=== PATIENT | female | born 1930 | race Caucasian/White ===

== ENCOUNTER 2017-06-03 12:59 | Inpatient (IN) ==
[2017-06-03] MEDS ORDERED: Ondansetron 4 MG/2 ML VIAL IVP ONE (13:09)
[2017-06-03] MEDS ORDERED: 0.9 % Sodium Chloride 1,000 ML IVC ONE (13:09)
--- NOTE | 2017-06-03 13:11 | Emergency Department Note ---
Disposition Clinical Impression: UTI (urinary tract infection) Qualifiers: Urinary tract infection type: acute cystitis Hematuria presence: with hematuria Qualified Code(s): N30.01 - Acute cystitis with hematuria Altered mental status Qualifiers: Altered mental status type: unspecified Qualified Code(s): R41.82 - Altered mental status, unspecified Fall Qualifiers: Encounter type: initial encounter Qualified Code(s): W19.XXXA - Unspecified fall, initial encounter Disposition: Admitted As Inpatient Condition: Fair Referrals: Silvia Carrion MD [Primary Care Provider] - Harpal Reece MD [Family Provider] - Forms: ED Satisfaction Letter Time of Disposition: 15:50 General Adult HPI - General Chief complaint: ED Altered Mental Status Stated complaint: found on floor, confusion Time Seen by Provider: 06/03/17 13:05 Source: EMS Mode of arrival: EMS Limitations: no limitations Nursing Notes Reviewed: Yes Vital Signs Reviewed: Yes - History of Present Illness HPI Narrative: 86-year-old female who lives at home by herself. Yesterday at about noon there was a furnace repairman who was at her house and she reportedly was normal that time. At about 1:00 family went to check on her but she did not answer the door and the phone was busy. They have not heard from her symptoms. They were able to get in the door this afternoon and found her on the floor laying on her back disoriented and trembling with soiled clothes. According to her son she does not have a history of stroke. She has been fairly healthy and the only medication she takes is aspirin, lisinopril, And oxycodone. He denies that she is on any blood thinners. The patient was significantly confused and unable to answer questions appropriately and so was brought to the emergency department. Her son reports that she does have a history of diabetes but is not currently taking any medications for that as they were d/c by her PCP. Pain Scale: 0 Consistency: constant Improves with: nothing Worsens with: nothing Associated symptoms: Reports: denies other symptoms Treatments Prior to Arrival: none - Related Data Home Medications Medication Instructions Recorded Confirmed Aspirin Enteric Coated [Aspirin EC] 81 mg PO DAILY 06/03/17 06/03/17 Lovastatin [Lovastatin] 40 mg PO DAILY 06/03/17 06/03/17 Tizanidine HCl [Tizanidine HCl] 2 mg PO BID 06/03/17 06/03/17 Allergies Allergy/AdvReac Type Severity Reaction Status Date / Time No Known Allergies Allergy Verified 06/03/17 13:06 Limitations: ROS unobtainable due to patients medical condition Past Medical History - Past Medical History Medical history: Reports: diabetes, hypertension - Social History Smoking Status: Current every day smoker Physical Exam - General Limitations: altered mental status General appearance: alert - Head Head exam: atraumatic - Eye Eye exam: Present: normal appearance, PERRL, EOMI - ENT ENT exam: normal exam - Neck Neck exam: Present: normal inspection - Cardiovascular Cardiovascular exam: Present: regular rate, normal rhythm - Abdominal Exam Abdominal exam: Present: soft, Non-Tender - Extremities Exam Extremities exam: Present: normal inspection - Neurological Exam Neurological exam: Present: alert, other (Does not answer questions appropriately. Does not follow commands but is moving all extremities. She is alert and repeating "I am fine" over and over) - Skin Skin exam: Present: warm, dry Course Course Narrative: GCS 12. Points taken off for localizing to pain, and inappropriate words. CT scans show no acute abnormality. Cervical collar removed. Labwork stable. UTI is present. Will treat with rocephin. Will fluid hydrate and admit for AMS /UTI Vital Signs Temperature 99.7 F H 06/03/17 13:00 Pulse Rate 72 06/03/17 13:00 Respiratory Rate 18 06/03/17 13:00 Blood Pressure 146/117 06/03/17 13:00 O2 Sat by Pulse Oximetry 95 06/03/17 13:00 Temperature 99.7 F H 06/03/17 13:00 Pulse Rate 72 06/03/17 13:00 Respiratory Rate 18 06/03/17 13:00 Blood Pressure 146/117 06/03/17 13:00 O2 Sat by Pulse Oximetry 97 06/03/17 13:23 Oxygen Delivery Oxygen Delivery Nasal Cannula Medical Decision Making - Medical Records Medical records reviewed: Yes I reviewed the patient's medical records. - Lab Data Lab results reviewed: Yes I reviewed the patient's lab results. Result diagrams: 06/03/17 13:43 06/03/17 13:37 Lab Results 06/03/17 06/03/17 06/03/17 Range/Units 13:23 13:24 13:37 WBC (4.3-11.1) K/mcL RBC (3.82-4.97) M/mcL Hgb (11.5-15.4) g/dL Hct (35.3-44.9) % MCV (83.0-100.0) fL MCH (28.0-33.3) pg MCHC (31.6-35.5) g/dL RDW (11.5-14.5) % Plt Count (140-400) K/mcL MPV (9.4-12.4) fL Immature Gran % (0-4) % Seg Neutrophils % % Lymphocytes % % Monocytes % % Eosinophils % % Basophils % % Neutrophils # (1.6-8.9) K/mcL Lymphocytes # (0.6-4.6) K/mcL Monocytes # (0.0-1.3) K/mcL Eosinophils # (0.0-0.6) K/mcL Basophils # (0.0-0.2) K/mcL Immature Plt Fraction (1.1-6.1) % PT 11.3 (9.4-12.1) Seconds INR 1.1 APTT 30.6 (26.0-36.0) Seconds Sodium (136-145) mEq/L Potassium (3.5-5.1) mEq/L Chloride (98-107) mEq/L Carbon Dioxide (23-29) mEq/L BUN (8-23) mg/dL Creatinine (0.60-1.20) mg/dL Est GFR ( Amer) (> 60) Est GFR (Non-Af Amer) (> 60) BUN/Creatinine Ratio (6-26) Glucose (70-105) mg/dL Calculated Osmolality (280-300) Lactic Acid (0.5-2.2) mmol/L Calcium (8.6-10.3) mg/dL Total Bilirubin (0.3-1.0) mg/dL Direct Bilirubin (0.0-0.2) mg/dL Indirect Bilirubin (0.0-1.2) mg/dL AST (13-39) Units/L ALT (7-52) Units/L Alkaline Phosphatase (34-104) Units/L Creatine Kinase (30-223) Units/L Troponin I (< 0.04) ng/mL Serum Total Protein (6.4-8.9) g/dL Albumin (3.5-5.7) g/dL Globulin (2.4-3.5) g/dL Albumin/Globulin Ratio (1.1-2.2) TSH (0.340-5.600) mcIU/mL Urine Color Yellow (Yellow) Urine Clarity Cloudy A (Clear) Urine pH 5.5 (5.0-8.0) pH Units Ur Specific [place] 1.024 (1.010-1.025) Urine Protein 30 H (Neg-Trace) mg/dL Urine Glucose (UA) Normal (Normal) mg/dL Urine Ketones Trace H (Negative) mg/dL Urine Blood Moderate H (Negative) Urine Nitrite Negative (Negative) Urine Bilirubin Negative (Negative) Urine Urobilinogen Normal (Normal) mg/dL Ur Leukocyte Esterase Small H (Negative) Urine Microscopic RBC 0-3 (0-3) per hpf Urine Microscopic WBC 30-50 H (0-3) per hpf Ur Squamous Epith Cells None Seen (None-Few) per lpf Urine Bacteria Many H (None-Few) per hpf Hyaline Casts None Seen (None-Few) per lpf Ur Culture Indicated? YES A (NO) Urine Opiates Screen Negative (Xlicbx=248) ng/mL Ur Barbiturates Screen Negative (Xesfaz=295) ng/mL Ur Phencyclidine Scrn Negative (Cutoff=25) ng/mL Ur Amphetamines Screen Negative (Pfnmcr=6142) ng/mL U Benzodiazepines Scrn Negative (Ctxtbm=404) ng/mL Urine Cocaine Screen Negative (Cutoff= 300) ng/mL U Marijuana (THC) Screen Negative (Cutoff = 50) ng/mL Ethyl Alcohol (0-10) mg/dL 06/03/17 06/03/17 06/03/17 Range/Units 13:37 13:37 13:37 WBC (4.3-11.1) K/mcL RBC (3.82-4.97) M/mcL Hgb (11.5-15.4) g/dL Hct (35.3-44.9) % MCV (83.0-100.0) fL MCH (28.0-33.3) pg MCHC (31.6-35.5) g/dL RDW (11.5-14.5) % Plt Count (140-400) K/mcL MPV (9.4-12.4) fL Immature Gran % (0-4) % Seg Neutrophils % % Lymphocytes % % Monocytes % % Eosinophils % % Basophils % % Neutrophils # (1.6-8.9) K/mcL Lymphocytes # (0.6-4.6) K/mcL Monocytes # (0.0-1.3) K/mcL Eosinophils # (0.0-0.6) K/mcL Basophils # (0.0-0.2) K/mcL Immature Plt Fraction (1.1-6.1) % PT (9.4-12.1) Seconds INR APTT (26.0-36.0) Seconds Sodium 137 (136-145) mEq/L Potassium 4.1 (3.5-5.1) mEq/L Chloride 101 (98-107) mEq/L Carbon Dioxide 25 (23-29) mEq/L BUN 27 H (8-23) mg/dL Creatinine 1.14 (0.60-1.20) mg/dL Est GFR ( Amer) 55 L (> 60) Est GFR (Non-Af Amer) 45 L (> 60) BUN/Creatinine Ratio 24 (6-26) Glucose 151 H (70-105) mg/dL Calculated Osmolality 292 (280-300) Lactic Acid (0.5-2.2) mmol/L Calcium 10.5 H (8.6-10.3) mg/dL Total Bilirubin 0.6 (0.3-1.0) mg/dL Direct Bilirubin 0.1 (0.0-0.2) mg/dL Indirect Bilirubin 0.5 (0.0-1.2) mg/dL AST 20 (13-39) Units/L ALT 7 (7-52) Units/L Alkaline Phosphatase 138 H (34-104) Units/L Creatine Kinase 300 H (30-223) Units/L Troponin I 0.03 (< 0.04) ng/mL Serum Total Protein 7.8 (6.4-8.9) g/dL Albumin 4.6 (3.5-5.7) g/dL Globulin 3.2 (2.4-3.5) g/dL Albumin/Globulin Ratio 1.4 (1.1-2.2) TSH 0.756 (0.340-5.600) mcIU/mL Urine Color (Yellow) Urine Clarity (Clear) Urine pH (5.0-8.0) pH Units Ur Specific [place] (1.010-1.025) Urine Protein (Neg-Trace) mg/dL Urine Glucose (UA) (Normal) mg/dL Urine Ketones (Negative) mg/dL Urine Blood (Negative) Urine Nitrite (Negative) Urine Bilirubin (Negative) Urine Urobilinogen (Normal) mg/dL Ur Leukocyte Esterase (Negative) Urine Microscopic RBC (0-3) per hpf Urine Microscopic WBC (0-3) per hpf Ur Squamous Epith Cells (None-Few) per lpf Urine Bacteria (None-Few) per hpf Hyaline Casts (None-Few) per lpf Ur Culture Indicated? (NO) Urine Opiates Screen (Sedmkq=879) ng/mL Ur Barbiturates Screen (Eroccr=889) ng/mL Ur Phencyclidine Scrn (Cutoff=25) ng/mL Ur Amphetamines Screen (Vokfqy=8485) ng/mL U Benzodiazepines Scrn (Tjiwkg=154) ng/mL Urine Cocaine Screen (Cutoff= 300) ng/mL U Marijuana (THC) Screen (Cutoff = 50) ng/mL Ethyl Alcohol < 10 (0-10) mg/dL 06/03/17 06/03/17 Range/Units 13:43 13:43 WBC 12.3 H (4.3-11.1) K/mcL RBC 4.89 (3.82-4.97) M/mcL Hgb 14.6 (11.5-15.4) g/dL Hct 44.3 (35.3-44.9) % MCV 90.6 (83.0-100.0) fL MCH 29.9 (28.0-33.3) pg MCHC 33.0 (31.6-35.5) g/dL RDW 13.6 (11.5-14.5) % Plt Count 283 (140-400) K/mcL MPV 10.6 (9.4-12.4) fL Immature Gran % 0.3 (0-4) % Seg Neutrophils % 83.8 % Lymphocytes % 9.5 % Monocytes % 6.2 % Eosinophils % 0.0 % Basophils % 0.2 % Neutrophils # 10.3 H (1.6-8.9) K/mcL Lymphocytes # 1.2 (0.6-4.6) K/mcL Monocytes # 0.8 (0.0-1.3) K/mcL Eosinophils # 0.0 (0.0-0.6) K/mcL Basophils # 0.0 (0.0-0.2) K/mcL Immature Plt Fraction 5.1 (1.1-6.1) % PT (9.4-12.1) Seconds INR APTT (26.0-36.0) Seconds Sodium (136-145) mEq/L Potassium (3.5-5.1) mEq/L Chloride (98-107) mEq/L Carbon Dioxide (23-29) mEq/L BUN (8-23) mg/dL Creatinine (0.60-1.20) mg/dL Est GFR ( Amer) (> 60) Est GFR (Non-Af Amer) (> 60) BUN/Creatinine Ratio (6-26) Glucose (70-105) mg/dL Calculated Osmolality (280-300) Lactic Acid 1.5 (0.5-2.2) mmol/L Calcium (8.6-10.3) mg/dL Total Bilirubin (0.3-1.0) mg/dL Direct Bilirubin (0.0-0.2) mg/dL Indirect Bilirubin (0.0-1.2) mg/dL AST (13-39) Units/L ALT (7-52) Units/L Alkaline Phosphatase (34-104) Units/L Creatine Kinase (30-223) Units/L Troponin I (< 0.04) ng/mL Serum Total Protein (6.4-8.9) g/dL Albumin (3.5-5.7) g/dL Globulin (2.4-3.5) g/dL Albumin/Globulin Ratio (1.1-2.2) TSH (0.340-5.600) mcIU/mL Urine Color (Yellow) Urine Clarity (Clear) Urine pH (5.0-8.0) pH Units Ur Specific [place] (1.010-1.025) Urine Protein (Neg-Trace) mg/dL Urine Glucose (UA) (Normal) mg/dL Urine Ketones (Negative) mg/dL Urine Blood (Negative) Urine Nitrite (Negative) Urine Bilirubin (Negative) Urine Urobilinogen (Normal) mg/dL Ur Leukocyte Esterase (Negative) Urine Microscopic RBC (0-3) per hpf Urine Microscopic WBC (0-3) per hpf Ur Squamous Epith Cells (None-Few) per lpf Urine Bacteria (None-Few) per hpf Hyaline Casts (None-Few) per lpf Ur Culture Indicated? (NO) Urine Opiates Screen (Wnyjzf=677) ng/mL Ur Barbiturates Screen (Peozqn=522) ng/mL Ur Phencyclidine Scrn (Cutoff=25) ng/mL Ur Amphetamines Screen (Btmdgv=4939) ng/mL U Benzodiazepines Scrn (Vgriaq=894) ng/mL Urine Cocaine Screen (Cutoff= 300) ng/mL U Marijuana (THC) Screen (Cutoff = 50) ng/mL Ethyl Alcohol (0-10) mg/dL - Radiology Data Radiology results reviewed: Yes I reviewed the patient's radiology results. - EKG Data EKG #1 EKG attestation: Yes I reviewed and interpreted this EKG. EKG shows normal: sinus rhythm [place]/QRS: RBBB When compared to previous EKG there are: previous EKG unavailable Interpretation: other (U wave is present in V2, V4, V5.) Attestation Statement - Attestation Attestation: I, Marlon White DO, examined this patient [id number] and my medical decision-making was reviewed with Dr. Edil Zheng, Resident Physician. I agree with the documented findings, disposition and treatment plan as described except to the extent set forth below. Please see my progress notes for details. 86-year-old female presents to the emergency room by EMS for evaluation of altered mentation and found down at home. Last known time frame of normal was yesterday partially 1 PM. No visible signs of trauma or injury noted on exam. Vital signs otherwise unremarkable. Patient is speaking in sentences. Does know her name. She is not oriented to time or place. Lungs are clear heart is regular abdomen is soft nontender nondistended. No visible guarding or rigidity. Patient does not have any acute signs of skin deterioration or breakdown. C-collar was applied in transit. CT imaging of the head cervical spine chest and abdomen will be completed at this time. Patient will have screening laboratory workup a CBC chemistry troponin EKG along with CPK and urinalysis. Expect patient will need admission to the hospital for definitive management considering altered mentation and unknown amount of downtime. Family is with her at the bedside and confirms last normal was yesterday. No history of stroke or other underlying medical conditions at this point. Accu- Chek was collected on presentation and it was normal. See detailed documentation of physical exam, medical intervention, medical decision-making and disposition in the resident physician's note. No critical care applied to this patient at this time. 1500 Imaging and labs are otherwise unremarkable. Patient has mild urinary tract infection will be started on IV antibiotics here. Admission process to be completed at this time for evaluation the altered mentation.
[2017-06-03 13:39] LABS: Bilirubin,Urine Negative (Negative); Blood,Urine Moderate (Negative); Clarity,Urine Cloudy (Clear); Color,Urine Yellow (Yellow); Glucose,Urine (UA) Normal (Normal); Ketones,Urine Trace mg/dL (Negative); Leukocyte Esterase,Urine Small (Negative); Nitrite,Urine Negative (Negative); PH,Urine 5.5 pH Units (5.0-8.0); Protein,Urine 30 mg/dL (Neg-Trace); Specific Gravity,Urine 1.024 (1.010-1.025); Urobilinogen,Urine Normal (Normal)
[2017-06-03 13:42] LABS: Bacteria,Urine Many per hpf (None-Few); Hyaline Casts,Urine None Seen per lpf (None-Few); RBC,Urine 0-3 per hpf (0-3); Squamous Epithelial Cell,Urine None Seen per lpf (None-Few); WBC,Urine 30-50 per hpf (0-3)
[2017-06-03 13:55] LABS: Basophils % 0.2 %; Hematocrit 44.3 % (35.3-44.9); Hemoglobin 14.6 g/dL (11.5-15.4); Immature Granulocytes % 0.3 % (0-4); Immature Platelets 5.1 % (1.1-6.1); Lymphocytes # 1.2 K/mcL (0.6-4.6); Lymphocytes % 9.5 %; Mean Corpuscular Hemoglobin 29.9 pg (28.0-33.3); Mean Corpuscular Volume 90.6 fL (83.0-100.0); Mean Platelet Volume 10.6 fL (9.4-12.4); Monocytes # 0.8 K/mcL (0.0-1.3); Monocytes % 6.2 %; Neutrophils # 10.3 K/mcL (1.6-8.9); Platelet Count 283 K/mcL (140-400); Red Blood Count 4.89 M/mcL (3.82-4.97); Red Cell Distribution Width 13.6 % (11.5-14.5); Segmented Neutrophils % 83.8 %
[2017-06-03 14:09] LABS: Alanine Aminotransferase 7 Units/L (7-52); Albumin 4.6 g/dL (3.5-5.7); Albumin/Globulin Ratio 1.4 (1.1-2.2); Alkaline Phosphatase 138 Units/L (34-104); Aspartate Amino Transferase 20 Units/L (13-39); BUN/Creatinine Ratio 24 (6-26); Bilirubin,Direct 0.1 mg/dL (0.0-0.2); Bilirubin,Indirect 0.5 mg/dL (0.0-1.2); Bilirubin,Total 0.6 mg/dL (0.3-1.0); Blood Urea Nitrogen 27 mg/dL (8-23); Calcium 10.5 mg/dL (8.6-10.3); Carbon Dioxide 25 mEq/L (23-29); Chloride 101 mEq/L (98-107); Globulin 3.2 g/dL (2.4-3.5); Glucose 151 mg/dL (70-105); Osmolality,Calculated 292 (280-300); Potassium 4.1 mEq/L (3.5-5.1); Sodium 137 mEq/L (136-145); Total Protein 7.8 g/dL (6.4-8.9); eGFR For African Americans 55 (> 60); eGFR For Non-African Americans 45 (> 60)
[2017-06-03 14:10] LABS: Ethanol < 10 mg/dL (0-10)
[2017-06-03 14:21] LABS: INR 1.1; Prothrombin Time 11.3 Seconds (9.4-12.1)
[2017-06-03 14:23] LABS: Activated Partial Thrombo Time 30.6 Seconds (26.0-36.0)
[2017-06-03 14:25] LABS: Thyroid Stimulating Hormone 0.756 mcIU/mL (0.340-5.600)
[2017-06-03] MEDS ORDERED: cefTRIAXone 1,000 MG in Water for inj. (sterile) 10 ML IVP ONE (14:43)
[2017-06-03 14:47] LABS: Amphetamine Screen,Urine Negative ng/mL (Cutoff=1000); Barbiturate Screen,Urine Negative ng/mL (Cutoff=200); Benzodiazepines Screen,Urine Negative ng/mL (Cutoff=200); Cannabinoid Screen,Urine Negative ng/mL (Cutoff = 50); Cocaine Screen,Urine Negative ng/mL (Cutoff= 300); Opiate Screen,Urine Negative ng/mL (Cutoff=300); Phencyclidine Screen,Urine Negative ng/mL (Cutoff=25)
[2017-06-03] MEDS ORDERED: Naloxone 0.4 MG/ML INJ IVP PRN (16:09)
[2017-06-03] MEDS ORDERED: 0.9 % Sodium Chloride 1,000 ML IVC SCH (16:15)
--- NOTE | 2017-06-03 18:15 | Internal Med History&Physical ---
Date of Encounter: 06/03/17 Time of Encounter: 15:00 Assessment and Plan (1) CVA (cerebral vascular accident) Current visit: Yes Status: Acute patient was found down in her today, last known well was approx [address] of head negative. MRI show tiny area of acute lacunar infarct within the left occipital lobe white matter. consulted neurology and spoke with DR Lange we will continue ASA hold statin for now patient is NPO - resume once cleared by speech check lipid profile consult PT/OT keep pt NPO- consult speech for swallow evaluation aspiration precautions social work associate for discharge planning- patient may require ECF placement monitor BS- accucheck every 6 hrs while NPO SSI monitor BP allow for permissive hypertension Qualifiers: CVA mechanism: occlusion Precerebral and cerebral artery: unspecified cerebral artery Qualified Code(s): I63.50 - Cerebral infarction due to unspecified occlusion or stenosis of unspecified cerebral artery (2) Diabetes mellitus Current visit: Yes Status: Acute accucheck every 6 hrs while NPO- SSI Qualifiers: Diabetes mellitus type: type 2 Diabetes mellitus complication status: without complication Diabetes mellitus custodial insulin use: without long term care social worker use Qualified Code(s): E11.9 - Type 2 diabetes mellitus without complications (3) HTN (hypertension) Current visit: Yes Status: Acute 1 Qualifiers: Hypertension type: essential hypertension Qualified Code(s): I10 - Essential (primary) hypertension (4) UTI (urinary tract infection) Current visit: Yes Status: Acute 1 we will continue with Rocephin pending culture sensitivity. Blood culture and urine culture sent Qualifiers: Urinary tract infection type: acute cystitis Hematuria presence: with hematuria Qualified Code(s): N30.01 - Acute cystitis with hematuria (5) DVT prophylaxis Current visit: Yes Status: Acute SCD Internal Medicine - H&P: HPI Chief complaint: AMS Admitted From: Emergency Dept Plans for Post Hospital Care: Home History of present illness: Ms. Armas is a 86 year old female past medical hx of HTN DM . Patient is independent and lives on own. She was found by the family at approx 1pm on the floor on her back. She was disoriented, and clothes were soiled. She was last seen well yesterday at approx 12 noon. She does not have any hx of stroke or seizure. She has been in good health with only a few medications. No hx of blood thinners. Lab work did show slight elevation in WBC urine did show UTI.CT of head and cervical spine with no acute abnormalities or fx .Blood culture were obtained and ATB initiated. She has been admitted for further workup and evaluation. Upon examination it is noted that patient is groggy and arouses to tactile stimuli, noted gaze preference to the left. She is unable to answer questions and repeats questions over and over. She does not follow any commands. Concerned for possible CVA, will obtain STAT MRI Notified Dr Vallejo of changes Past Med Surg Social Fam HX - Past Medical History Medical history: diabetes, hypertension - Social History Smoking Status: Current every day smoker - Additional Family History Additional family history: unknown Internal Medicine - H&P: Meds Aspirin Enteric Coated [Aspirin EC] 81 mg PO DAILY 06/03/17 [History] Lovastatin [Lovastatin] 40 mg PO DAILY 06/03/17 [History] Tizanidine HCl [Tizanidine HCl] 2 mg PO BID 06/03/17 [History] 3 Allergy/AdvReac Type Severity Reaction Status Date / Time No Known Allergies Allergy Verified 06/03/17 13:06 ROS unobtainable: due to mental status All Systems PM: A 10-system review of systems was performed and is negative for pertinent findings except as documented above in the HPI. - Constitutional Vitals: Temp Pulse Resp BP Pulse Ox 99.6 F 56 17 121/72 98 06/03/17 16:31 06/03/17 16:31 06/03/17 16:31 06/03/17 16:31 06/03/17 16:31 General appearance: Present: A&O X 0 - Head Head exam: Present: atraumatic, normocephalic - Eye Eye exam: Present: PERRL Additional comments: noted gaze preference to left - Neck Neck exam general surgery: Present: supple, trachea midline. Absent: lymphadenopathy - Respiratory Respiratory exam: Present: CTAB. Absent: accessory muscle use, rales, rhonchi, wheezes - Cardiovascular Cardiovascular exam: Present: RRR, +S1, +S2. Absent: diastolic murmur, gallop, rubs, systolic murmur - GI/Abdominal GI/Abdominal exam: Present: normal bowel sounds, soft, no peritoneal signs. Absent: distended, tenderness - Extremities Exam Extremities exam: Present: warm, radial pulses palpable and symmetrical. Absent : calf tenderness, cyanotic, pedal edema - Neurological Exam Neurological exam: Present: altered. Absent: pronater drift, facial droop, speech deficit Additional comments: unable to follow any commands - Skin Skin exam: Present: dry, intact Internal Med - H&P Results - Labs CBC & Chem 7: 06/03/17 13:43 06/03/17 13:37 - EKG Data EKG shows normal: sinus rhythm - EKG Data Prior EKG available for review: yes When compared to previous EKG: there is no significant change - Diagnostic Studies Other Images Additional comments: Chest X-Ray 06/03/17 13:06 IMPRESSION: 1. No acute cardiopulmonary process. D/ / Fawad Valdez MD / Fawad Valdez MD Interpreting Provider: Fawad Valdez MD Abdomen/Pelvis CT 06/03/17 13:07 IMPRESSION: 1. Study limited in evaluation for acute subtle, solid or hollow organ injury given lack of IV and oral contrast. However, given these limitations, there is no acute traumatic abnormality within the abdomen or pelvis. 2. A 2 mm nonobstructing calculus within the left kidney upper pole, without evidence of a ureteral calculus or hydronephrosis. 3. Colonic diverticulosis, though no evidence of diverticulitis. 4. Small sliding-type hiatal hernia. 5. Mild cardiomegaly. 6. Multilevel disc osteophyte protrusions within the thoracic and lumbar spine, causing multilevel central canal stenosis. This could be further characterized with a follow-up thoracolumbar MRI, if clinically indicated. D/ / 06/03/2017 14:35:01 Nicko Camp MD / earnold Interpreting Provider: Nicko Camp MD Cervical Spine CT 06/03/17 13:07 IMPRESSION: No acute abnormality of the cervical spine. Multilevel degenerative changes. D/ / Saul Mark MD / Saul Mark MD Interpreting Provider: Saul Mark MD Chest CT 06/03/17 13:07 IMPRESSION: 1. Scarring versus atelectasis in the medial lower lobes. No suspicious infiltrate or edema 2. Calcific Coronary atherosclerosis D/ / Gael Nava MD / Gael Nava MD Interpreting Provider: Gael Nava MD Head CT 06/03/17 13:07 IMPRESSION: 1. No acute intracranial abnormality. 2. Global atrophy with chronic periventricular white matter ischemic changes. D/ / 06/03/2017 14:29:36 Jered Pascual MD / earnold Interpreting Provider: Jered Pascual MD Brain MRI 06/03/17 16:07 IMPRESSION: Tiny area of acute lacunar infarct within left occipital lobe white matter. No associated susceptibility to suggest acute intracranial hemorrhage. Chronic small vessel ischemic white matter disease and cerebral volume loss. Multiple small subcentimeter T2 hyperintense lesions within bilateral parotid, which may represent intraparotid lymph nodes. This is not fully imaged on this examination. D/ / 06/03/2017 18:22:24 Romero Hinds MD / arnaldo Interpreting Provider: Romero Hinds MD
[2017-06-03] MEDS ORDERED: Dextrose Gel 15 GM PO PRN ×2 (18:20)
[2017-06-03] MEDS ORDERED: D5% in Water 1,000 ML IVC PRN (18:20)
[2017-06-03] MEDS ORDERED: *HR* Dextrose 50 % in Water (Syg) 50 ML SYRINGE IVP PRN (18:20)
[2017-06-04] MEDS: Insulin LISPRO 300 UNITS/3 ML VIAL SQ SCH ×5 (00:12→23:39)
[2017-06-04 01:12] LABS: Basophils % 0.3 %; Eosinophils % 0.4 %; Immature Granulocytes % 0.3 % (0-4); Lymphocytes # 2.1 K/mcL (0.6-4.6); Lymphocytes % 20.5 %; Mean Corpuscular HGB Conc 32.6 g/dL (31.6-35.5); Mean Corpuscular Volume 91.8 fL (83.0-100.0); Mean Platelet Volume 10.6 fL (9.4-12.4); Monocytes # 1.2 K/mcL (0.0-1.3); Monocytes % 11.5 %; Neutrophils # 6.9 K/mcL (1.6-8.9); Platelet Count 247 K/mcL (140-400); Red Blood Count 4.14 M/mcL (3.82-4.97); Red Cell Distribution Width 13.9 % (11.5-14.5)
[2017-06-04 01:16] LABS: Hemoglobin 12.4 g/dL (11.5-15.4)
[2017-06-04 01:30] LABS: Chol/HDL Ratio 3.5 (0-4.9)
[2017-06-04 01:32] LABS: Calcium 9.2 mg/dL (8.6-10.3); Magnesium 2.1 mg/dL (1.6-2.6); Potassium 4.1 mEq/L (3.5-5.1)
--- NOTE | 2017-06-04 11:12 | Neurology - Consult Note ---
Date of Encounter: 06/04/17 Time of Encounter: 11:08 Assessment and Plan (1) CVA (cerebral vascular accident) Current Visit: Yes Status: Acute 86 year old woman with HTN, DM and hyperlipidemia and likely baseline mild cognitive impairment who developed acute change in mental status likely to related UTI and medical condition and small left occipital lobe infarct, which could be small microembolic or lacunar small vessel etiology. Size of stroke very small and unlikely to cause significant neurological deficits. Will need stroke work up including echo and carotid duplex per protocol. Treating UTI. Her symptoms have already improved. There may be mild baseline cognitive impairment and therefore needs evaluation in terms of safety to live alone at home. Suggest to continue her on antiplatelet therapy in the form of aspirin 325mg daily. Continue statin therapy. Patient does appear to have newly found atrial fibrillation if that is the case then anticoagulation therapy will be recommended. Will defer to cardiology's input. Qualifiers: CVA mechanism: occlusion Precerebral and cerebral artery: unspecified cerebral artery Qualified Code(s): I63.50 - Cerebral infarction due to unspecified occlusion or stenosis of unspecified cerebral artery History of Present Illness Chief complaint: Confusion, weakness and CVA HPI: Ms. Armas is a 86 year old female with PMH significant for HTN, DM, hperlipidemia who presented with acute onset of mental status changes. Per medical report, she was found on the floor, confused and weak and having some speech difficulty. Symptoms occurred yesterday at around noon and after. Brought to ER and CT of brain was reported no acute intracranial abnormality. She was found to have UTI and is being treated for that. However, MRI of brain returned abnormal, showing presence of tiny acute DW signal abnormality at the left occipital lobe. Patient is feeling better and says that she does not know why she is in the hospital. She lives alone and denies any significant problems. She still drives locally. Past Med Surg Social Fam HX - Past Medical History Medical history: diabetes, hypertension - Past Surgical History Surgical History: knee replacement - Social History Smoking Status: Current every day smoker Packs per day: one a week Smokeless Tobacco Status: No Alcohol use: none Drug use: none Medications and Allergies Aspirin Enteric Coated [Aspirin EC] 81 mg PO DAILY 06/03/17 [History] Lovastatin [Lovastatin] 40 mg PO DAILY 06/03/17 [History] Tizanidine HCl [Tizanidine HCl] 2 mg PO BID 06/03/17 [History] 3 Allergy/AdvReac Type Severity Reaction Status Date / Time No Known Allergies Allergy Verified 06/03/17 13:06 All Systems: A 10-system review of systems was performed and is negative for pertinent findings except as documented above in the HPI. Physical Examination - Vital Signs Vital Signs: Initial Vital Signs Temp Pulse Resp BP Pulse Ox 99.7 F H 72 18 146/117 95 06/03/17 13:00 06/03/17 13:00 06/03/17 13:00 06/03/17 13:00 06/03/17 13:00 - Constitutional General appearance: comfortable - Neurologic Sensorimotor examination: intact (Grossly intact) Motor examination - right side: 5/5: deltoids, biceps, triceps, wrist flexion, wrist extension, harp maker, hip flexors, tibialis Anterior, quadriceps, toe extension (EHL), plantarflexion Motor examination - left side: 5/5: deltoids, biceps, triceps, wrist flexion, wrist extension, hip flexors, harp maker, quadriceps, tibialis Anterior, toe extension (EHL), plantarflexion Posture: other (None) Reflexes: Biceps: 2+, Triceps: 2+, Brachioradialis: 2+, Patella: 2+, Achilles: 2 + Mental Status Examination: awake, alert, oriented to person, oriented to place, oriented to time, follows commands appropriately, answers questions appropriately, makes eye contact, follows simple commands, impaired memory ( Patient does have memory difficulty. Baseline condtion not known) Cranial nerve examination: PERRL, EOMI (Slight right eyelid drooping noted, with partial gaze palsy to the left side), visual solorio intact, corneal reflexes brisk symmetrically, sensory to face intact, mastication intact, no facial asymmetry is present, no dysarthria, hearing is intact symmetrically, soft palate elevates bilaterally upon phonation, gag reflex intact, flexes SCM and trapezius muscles symmetrically with full power, tongue protrudes midline, no atrophy or facial fasiculations present Results - Laboratory Findings CBC and BMP: 06/04/17 00:51 06/04/17 00:51 Abnormal lab findings: Abnormal lab results Chloride 109 mEq/L (98-107) H 06/04/17 00:51 BUN 28 mg/dL (8-23) H 06/04/17 00:51 Est GFR (Non-Af Amer) 49 (> 60) L 06/04/17 00:51 POC Glucose 97 (58-89) H 06/04/17 00:01 Alkaline Phosphatase 138 Units/L (34-104) H 06/03/17 13:37 Creatine Kinase 330 Units/L (30-223) H 06/03/17 19:07 Urine Clarity Cloudy (Clear) A 06/03/17 13:23 Urine Protein 30 mg/dL (Neg-Trace) H 06/03/17 13:23 Urine Ketones Trace mg/dL (Negative) H 06/03/17 13:23 Urine Blood Moderate (Negative) H 06/03/17 13:23 Ur Leukocyte Esterase Small (Negative) H 06/03/17 13:23 Urine Microscopic WBC 30-50 per hpf (0-3) H 06/03/17 13:23 Urine Bacteria Many per hpf (None-Few) H 06/03/17 13:23 Ur Culture Indicated? YES (NO) A 06/03/17 13:23 Consult Discharge Plan - Plan Referrals: Silvia Carrion MD [Primary Care Provider] - Harpal Reece MD [Family Provider] -
[2017-06-04] MEDS: cefTRIAXone 1,000 MG in Water for inj. (sterile) 10 ML IVP SCH (11:14)
[2017-06-04] MEDS: Ondansetron 4 MG/2 ML VIAL IVP PRN ×2 (13:05→18:49)
--- NOTE | 2017-06-04 14:59 | Internal Med Progress Note ---
Date of Encounter: 06/04/17 Time of Encounter: 10:00 - Assessment and plan (1) UTI (urinary tract infection) Current Visit: Yes Status: Acute Qualifiers: Urinary tract infection type: acute cystitis Hematuria presence: with hematuria Qualified Code(s): N30.01 - Acute cystitis with hematuria (2) Altered mental status Current Visit: Yes Status: Acute Qualifiers: Altered mental status type: unspecified Qualified Code(s): R41.82 - Altered mental status, unspecified (3) Fall Current Visit: Yes Status: Acute Qualifiers: Encounter type: initial encounter Qualified Code(s): W19.XXXA - Unspecified fall, initial encounter (4) CVA (cerebral vascular accident) Current Visit: Yes Status: Acute Assessment and plan: Patient presented to emergency department after being found morning of admission by her son incoherent at home. Son reports that mother has not eaten any food for 4 days and that the last time he saw her normal was 24 hours before she was found on admission. Patient was found on the floor, confused and weak with some speech difficulty. Intermittently slurred speech remains, patient is neurologically intact with strength equal bilaterally. Patient with slight right eyelid drooping, no facial droop. Son states this is normal for her. Head CT is negative, brain MRI showed a tiny acute lacunar infarct within left occipital lobe, chronic small vessel ischemic white matter disease and volume loss. Speech and swallow evaluation were completed. Patient has been placed on a normal diet. Echocardiogram and carotids ordered and pending. PT/OT consultation ordered and pending. Head CT 06/03/17 13:07 IMPRESSION: 1. No acute intracranial abnormality. 2. Global atrophy with chronic periventricular white matter ischemic changes. D/ / 06/03/2017 14:29:36 Jered Pascual MD / earnold Interpreting Provider: Jered Pascual MD Brain MRI 06/03/17 16:07 IMPRESSION: 1. Tiny area of acute lacunar infarct within left occipital lobe white matter. No associated susceptibility to suggest acute intracranial hemorrhage. 2. Chronic small vessel ischemic white matter disease and cerebral volume loss. 3. Multiple small subcentimeter T2 hyperintense lesions within bilateral parotid, which may represent intraparotid lymph nodes. This is not fully imaged on this examination. D/ / 06/03/2017 18:22:24 Romero Hinds MD / arnaldo Interpreting Provider: Romero Hinds MD Qualifiers: CVA mechanism: occlusion Precerebral and cerebral artery: unspecified cerebral artery Qualified Code(s): I63.50 - Cerebral infarction due to unspecified occlusion or stenosis of unspecified cerebral artery (5) Diabetes mellitus Current Visit: Yes Status: Chronic Assessment and plan: Chronic. Accu-Cheks before meals at bedtime, diabetic diet, sliding scale insulin. Will order A1c. Qualifiers: Diabetes mellitus type: type 2 Diabetes mellitus complication status: without complication Diabetes mellitus business division chair insulin use: without business division chair use Qualified Code(s): E11.9 - Type 2 diabetes mellitus without complications (6) HTN (hypertension) Current Visit: Yes Status: Chronic Assessment and plan: Chronic. Allow for permissive hypertension for 48 hours. After that, continue home medications. Qualifiers: Hypertension type: essential hypertension Qualified Code(s): I10 - Essential (primary) hypertension (7) DVT prophylaxis Current Visit: Yes Status: Acute Assessment and plan: SCDs ordered. (8) A-fib Current Visit: Yes Status: Suspected Assessment and plan: Suspected A. fib. Rhythm is irregular. She denies any chest pain or shortness of breath. Cardiology has been consult it. I appreciate their consultation and recommendations. Qualifiers: Atrial fibrillation type: paroxysmal Qualified Code(s): I48.0 - Paroxysmal atrial fibrillation - Time Spent With Patient less than 15 minutes - Subjective Interval history: Pt was seen and assessed at 1000. Son at bedside. Pt is alert and awake, answers questions appropriately. She denies any pain. No n/v/d, dizziness, headache, chest pain or SOB. Son is requesting that pt stay for PT/OT evaluation and placement in rehab facility. - Constitutional Vitals: Temp Pulse Resp BP Pulse Ox 97.8 F 49 16 112/68 93 06/04/17 12:00 06/04/17 12:00 06/04/17 12:00 06/04/17 12:00 06/04/17 12:00 General appearance: Present: A&O X 0, pleasant, no acute distress, answers questions appropriately - Head Head exam: Present: atraumatic, normal inspection, normocephalic - Eye Eye exam: Present: normal appearance, conjuntiva pink, sclera anicteric - Neck Neck exam general surgery: Present: supple, trachea midline. Absent: lymphadenopathy, tenderness - Respiratory Respiratory exam: Present: decreased breath sounds, CTAB. Absent: accessory muscle use, rales, respiratory distress, rhonchi, wheezes - Cardiovascular Cardiovascular exam: Present: RRR, +S1, +S2. Absent: diastolic murmur, gallop, rubs, systolic murmur - GI/Abdominal GI/Abdominal exam: Present: normal bowel sounds, soft, no peritoneal signs. Absent: distended, hepatomegaly, tenderness - Extremities Exam Extremities exam: Present: normal capillary refill, warm, radial pulses palpable and symmetrical. Absent: calf tenderness, cyanotic, pedal edema - Neurological Exam Neurological exam: Present: alert, altered, no focal deficits. Absent: oriented X3, facial droop, speech deficit - Skin Skin exam: Present: dry, intact, normal color, warm. Absent: rash Internal Medicine: Result - Labs CBC & Chem 7: 06/04/17 00:51 06/04/17 00:51 Labs: Short CBC 06/04/17 Range/Units 00:51 WBC 10.3 (4.3-11.1) K/mcL Hgb 12.4 D (11.5-15.4) g/dL Hct 38.0 (35.3-44.9) % Plt Count 247 (140-400) K/mcL Neutrophils # 6.9 (1.6-8.9) K/mcL BMP 06/04/17 00:51 Sodium 141 Potassium 4.1 Chloride 109 H Carbon Dioxide 26 BUN 28 H Creatinine 1.06 Glucose 103 Calcium 9.2 Cardiac Enzymes 06/04/17 Range/Units 00:51 Troponin I 0.03 (< 0.04) ng/mL - ABG Interpretation ABG results: PT/INR, D-dimer PT 11.3 Seconds (9.4-12.1) 06/03/17 13:37 - VTE Documentation of Mechanical Device: Intermittent pneumatic compression device Consult Discharge Plan - Plan Referrals: Silvia Carrion MD [Primary Care Provider] - Harpal Reece MD [Family Provider] -
[2017-06-05] MEDS: Insulin LISPRO 300 UNITS/3 ML VIAL SQ SCH ×3 (05:17→17:06)
--- NOTE | 2017-06-05 08:05 | Cardiology Consult Note ---
Addendum entered and electronically signed by Tito Hein CNP 06/05/17 09:55 : Tele strips reviewed with Dr. Cole, suspected PAF. Addendum entered and electronically signed by Tito Hein CNP 06/05/17 09:43 : Patient confirms she does not recall the event or any precipitating factors. Original Note: Date of Encounter: 06/05/17 Time of Encounter: 08:05 Assessment and Plan (1) CVA (cerebral vascular accident) Current Visit: Yes Status: Acute Per Cardiology: Head CT is negative, brain MRI showed a tiny acute lacunar infarct within left occipital lobe, chronic small vessel ischemic white matter disease and volume loss. Neurology following. On asa and statin. Patient is DNR/CCA/DNI. Qualifiers: CVA mechanism: occlusion Precerebral and cerebral artery: unspecified cerebral artery Qualified Code(s): I63.50 - Cerebral infarction due to unspecified occlusion or stenosis of unspecified cerebral artery (2) A-fib Current Visit: Yes Status: Suspected Per Cardiology: Had been on "warafarin in the past for diabetes". She reports discontinued by PCP for unknown reasons. No previous medical records available for review. Telemetry reviewed with average heart rate 62, sinus rhythm. Brief episodes of atrial tachycardia versus atrial fibrillation noted-- will review strips with Dr. Cole. Currently on aspirin for anticoagulation per neurology. Will need to evaluate if more potent anticoagulation appropriate. Echo pending. Qualifiers: Atrial fibrillation type: paroxysmal Qualified Code(s): I48.0 - Paroxysmal atrial fibrillation (3) UTI (urinary tract infection) Current Visit: Yes Status: Acute Per Cardiology: MS changes in setting of UTI. MS appears improved currently. Management per primary service. Qualifiers: Urinary tract infection type: acute cystitis Hematuria presence: with hematuria Qualified Code(s): N30.01 - Acute cystitis with hematuria Discussion w patient/family: The assessment and plan as outlined above was discussed with the patient who expressed understanding and agreement. All questions were answered. Thank you for involving us in the care of your patient. Please call with any questions. History of Present Illness Consult date: 06/05/17 Requesting physician: Enid Pacheco Consult reason: CVA, afib? Chief complaint: Fall History of present illness: Cardiology consult for concerns of afib and patient with acute CVA. Patient uncertain of circumstances surrounding admission. Reports she believes she fell and has fallen 4 times recently she attributes to "tripping on carpet". Lives alone at home. Previous records reviewed: "Ms. Armas is a 86 year old female past medical hx of HTN DM . Patient is independent and lives on own. She was found by the family at approx 1pm on the floor on her back. She was disoriented, and clothes were soiled. She was last seen well yesterday at approx 12 noon. She does not have any hx of stroke or seizure. She has been in good health with only a few medications. No hx of blood thinners". Patient alert and oriented 3 today. She denies any chest pain, shortness of breath, palpitations. Reports was on warfarin in the past, however discontinued by her PCP. Patient is not sure why she was taking or was discontinued. She denies any active bleeding or blood loss. She denies any history of atrial fibrillation, CVA, DVT/PE. Denies any known history of CAD. Seen today at echocardiogram. Past Med Surg Social Fam HX - Past Medical History Attestation: Yes The following information was validated with the patient. Source: patient, old records reviewed Medical history: diabetes, hypertension - Past Surgical History Surgical History: knee replacement - Social History Smoking Status: Current every day smoker Packs per day: one a week Smokeless Tobacco Status: No Alcohol use: none Drug use: none Medications and Allergies Aspirin Enteric Coated [Aspirin EC] 81 mg PO DAILY 06/03/17 [History] Lovastatin [Lovastatin] 40 mg PO DAILY 06/03/17 [History] Tizanidine HCl [Tizanidine HCl] 2 mg PO BID 06/03/17 [History] 3 Allergy/AdvReac Type Severity Reaction Status Date / Time No Known Allergies Allergy Verified 06/03/17 13:06 ROS unobtainable: other (patient does not recall events) All Systems Review: A 10-system review of systems was performed and is negative for pertinent findings except as documented above in the HPI. - Cardiovascular Cardiovascular: as per HPI Physical Examination Selected Entries 06/04/17 20:00 06/05/17 03:05 Temperature 97.8 F Pulse Rate 50 Respiratory Rate 16 Blood Pressure 129/69 O2 Sat by Pulse Oximetry 95 Oxygen Delivery Method Room Air General: Conversant, No Apparent Distress HEENT: Atraumatic, Normocephaly, Mucus Membranes Moist Neck: No JVD, Normal carotid pulses Cardiac: Reg Rate and Rhythm, Normal S1 and S2, No Murmur Lungs: Normal Breath Sounds, No Wheeze, Rales, Rhonchi Neuro: Alert and responsive, No focal deficits noted, Other (right sided facial droop and slightly slurred speech-- patient report this is new for her, but not new during stay) Abdomen: Soft, Non-Tender Skin: No rashes noted on visualized skin Musculoskeletal: No Chest Wall Tenderness Extremities: No Clubbing, No Cyanosis, No Edema, Normal Pulses Results 06/04/17 00:51 06/04/17 00:51 Laboratory Tests 06/03/17 06/03/17 06/03/17 13:23 13:37 13:37 INR 1.1 Creatinine Est GFR (Non-Af Amer) Magnesium Troponin I TSH 0.756 Ur Leukocyte Esterase Small H Ur Culture Indicated? YES A 06/03/17 06/03/17 06/04/17 13:37 19:07 00:51 INR Creatinine Est GFR (Non-Af Amer) Magnesium Troponin I 0.03 0.03 0.03 TSH Ur Leukocyte Esterase Ur Culture Indicated? 06/04/17 00:51 INR Creatinine 1.06 Est GFR (Non-Af Amer) 49 L Magnesium 2.1 Troponin I TSH Ur Leukocyte Esterase Ur Culture Indicated? ITS Impressions Chest X-Ray 06/03/17 13:06 IMPRESSION: 1. No acute cardiopulmonary process. D/ / Fawad Valdez MD / Fawad Valdez MD Interpreting Provider: Fawad Valdez MD Abdomen/Pelvis CT 06/03/17 13:07 IMPRESSION: 1. Study limited in evaluation for acute subtle solid or hollow organ injury given lack of IV and oral contrast. However, given these limitations, there is no acute traumatic abnormality within the abdomen or pelvis. 2. 2 mm nonobstructing calculus within the left kidney upper pole, without evidence of a ureteral calculus or hydronephrosis. 3. Colonic diverticulosis, though no evidence of diverticulitis. 4. Small sliding-type hiatal hernia. 5. Mild cardiomegaly. 6. Multilevel disc osteophyte protrusions within the thoracic and lumbar spine, causing multilevel central canal stenosis. This could be further characterized with a follow-up thoracolumbar MRI, if clinically indicated. D/ / 06/03/2017 14:35:01 Nicko Camp MD / earquintin Interpreting Provider: Nicko Camp MD Cervical Spine CT 06/03/17 13:07 IMPRESSION: No acute abnormality of the cervical spine. Multilevel degenerative changes. D/ / Saul Mark MD / Saul Mark MD Interpreting Provider: Saul Mark MD Chest CT 06/03/17 13:07 IMPRESSION: 1. Scarring versus atelectasis in the medial lower lobes. No suspicious infiltrate or edema 2. Calcific Coronary atherosclerosis D/ / Gael Nava MD / Gael Nava MD Interpreting Provider: Gael Nava MD Head CT 06/03/17 13:07 IMPRESSION: 1. No acute intracranial abnormality. 2. Global atrophy with chronic periventricular white matter ischemic changes. D/ / 06/03/2017 14:29:36 Jered Pascual MD / earquintin Interpreting Provider: Jered Pascual MD Brain MRI 06/03/17 16:07 IMPRESSION: 1. Tiny area of acute lacunar infarct within left occipital lobe white matter. No associated susceptibility to suggest acute intracranial hemorrhage. 2. Chronic small vessel ischemic white matter disease and cerebral volume loss. 3. Multiple small subcentimeter T2 hyperintense lesions within bilateral parotid, which may represent intraparotid lymph nodes. This is not fully imaged on this examination. D/ / 06/03/2017 18:22:24 Romero Hinds MD / [facility] Interpreting Provider: Romero Hinds MD Active Medications Aspirin (Aspirin) 325 mg PO DAILY [facility] Stop: 12/05/17 09:01 Atorvastatin Calcium (Lipitor) 10 mg PO DAILY [facility] Stop: 12/05/17 09:01 Dextrose/Water (Dextrose 50% (Syg)) 25 ml IVP AD PRN PRN Reason: Hypoglycemia Stop: 12/03/17 18:21 Glucagon (Glucagen) 1 mg IM ONCE PRN PRN Reason: Hypoglycemia Stop: 12/03/17 18:21 Glucose (Gluctose) 15 gm PO ONCE PRN PRN Reason: Hypoglycemia Stop: 12/03/17 18:21 Glucose (Gluctose) 30 gm PO ONCE PRN PRN Reason: Hypoglycemia Stop: 12/03/17 18:21 Ceftriaxone Sodium 1,000 mg/ (Sterile Water) 10 mls @ 300 mls/hr IVP DAILY [facility] Stop: 12/04/17 09:01 Last Admin: 06/04/17 11:14 Dose: 300 mls/hr Dextrose (Dextrose 5%) 1,000 mls @ 100 mls/hr IVC .Q10H PRN PRN Reason: HYPOGLYCEMIA Stop: 12/03/17 18:21 Insulin Human Lispro (Humalog) 0 units SQ Q6HR LENO PRN Reason: Protocol Stop: 12/04/17 00:01 Last Admin: 06/05/17 05:17 Dose: Not Given Naloxone HCl (Narcan) 0.4 mg IVP Q2MIN PRN PRN Reason: Opioid Reversal Stop: 12/03/17 16:10 Ondansetron HCl (Zofran) 4 mg IVP Q8HR PRN PRN Reason: Nausea And Vomiting Stop: 12/03/17 16:10 Last Admin: 06/04/17 18:49 Dose: 4 mg Tizanidine HCl (Zanaflex) 2 mg PO BID [facility] Stop: 12/05/17 09:01 - Imaging and Cardiology Echo: pending - EKG Interpretation EKG results cardiology: personally reviewed, normal ECG, sinus rhythm, other ( Telemetry reviewed with average heart rate 62, currently sinus bradycardia to sinus rhythm in the 50s to 60s.) Consult Discharge Plan - Plan Referrals: Silvia Carrion MD [Primary Care Provider] - Harpal Reece MD [Family Provider] -
[2017-06-05] MEDS: Aspirin 325 MG TABLET PO SCH (09:22)
[2017-06-05] MEDS: tiZANidine 4 MG TABLET PO SCH ×2 (09:22→20:19)
[2017-06-05] MEDS: cefTRIAXone 1,000 MG in Water for inj. (sterile) 10 ML IVP SCH (09:23)
--- NOTE | 2017-06-05 14:04 | Internal Med Progress Note ---
Date of Encounter: 06/05/17 Time of Encounter: 13:30 - Assessment and plan (1) UTI (urinary tract infection) Current Visit: Yes Status: Acute Assessment and plan: The patient presents with cloudy urine, moderate amount of blood small amount of leukocyte esterase and many bacteria. Preliminary culture shows gram- negative rods. Patient is being treated with Rocephin 1 g IV daily Continue IV antibiotic and it just based on final culture results. 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 She had acute mental status change prior to admission. This could likely be related to UTI or occipital lobe infarct. Per neurology note the size of the stroke is very small and unlikely to cause significant neurological deficits. She is being treated for urinary tract infection and today she answers questions appropriately. Continue to monitor. Patient is near the nurses station. Qualifiers: Altered mental status type: unspecified Qualified Code(s): R41.82 - Altered mental status, unspecified (3) CVA (cerebral vascular accident) Current Visit: Yes Status: Acute Assessment and plan: Patient presented to emergency department after being found morning of admission by her son incoherent at home. Son reports that mother has not eaten any food for 4 days and that the last time he saw her normal was 24 hours before she was found on admission. Patient was found on the floor, confused and weak with some speech difficulty. Intermittently slurred speech remains, patient is neurologically intact with strength equal bilaterally. Patient with slight right eyelid drooping, no facial droop. Son states this is normal for her. Head CT is negative, brain MRI showed a tiny acute lacunar infarct within left occipital lobe, chronic small vessel ischemic white matter disease and volume loss. Speech and swallow evaluation were completed. Patient has been placed on a normal diet. This was evaluated by neurology. They recommended completing the stroke workup including echo and carotids, which are completed. They also suggest that she may need evaluation in terms of safety to live home alone at home. Continue aspirin 325 mg daily. Continue statin therapy. Limited echocardiogram shows no evidence of PFO and EF of 55-60%. Bilateral carotid system has nonstenotic plaque, left cerebral artery has retrograde flow. PT/OT consultation ordered and pending. environmental services aide consult for discharge planning, patient and son would like to start with [facility]. Head CT 06/03/17 13:07 IMPRESSION: 1. No acute intracranial abnormality. 2. Global atrophy with chronic periventricular white matter ischemic changes. D/ / 06/03/2017 14:29:36 Jered Pascual MD / [facility] Interpreting Provider: Jered Pascual MD Brain MRI 06/03/17 16:07 IMPRESSION: 1. Tiny area of acute lacunar infarct within left occipital lobe white matter. No associated susceptibility to suggest acute intracranial hemorrhage. 2. Chronic small vessel ischemic white matter disease and cerebral volume loss. 3. Multiple small subcentimeter T2 hyperintense lesions within bilateral parotid, which may represent intraparotid lymph nodes. This is not fully imaged on this examination. D/ / 06/03/2017 18:22:24 Romero Hinds MD / [facility] Interpreting Provider: Romero Hinds MD Qualifiers: CVA mechanism: occlusion Precerebral and cerebral artery: unspecified cerebral artery Qualified Code(s): I63.50 - Cerebral infarction due to unspecified occlusion or stenosis of unspecified cerebral artery (4) Diabetes mellitus Current Visit: Yes Status: Chronic Assessment and plan: Chronic. Accu-Cheks before meals at bedtime, diabetic diet, sliding scale insulin. Continue to monitor for hyperglycemia. Hypo-glycemia protocol ordered. Qualifiers: Diabetes mellitus type: type 2 Diabetes mellitus complication status: without complication Diabetes mellitus assistant terminal manager insulin use: without assistant terminal manager use Qualified Code(s): E11.9 - Type 2 diabetes mellitus without complications (5) HTN (hypertension) Current Visit: Yes Status: Chronic Assessment and plan: Chronic. Allow for permissive hypertension for 48 hours. After that, continue home medications. Qualifiers: Hypertension type: essential hypertension Qualified Code(s): I10 - Essential (primary) hypertension (6) DVT prophylaxis Current Visit: Yes Status: Acute Assessment and plan: SCDs ordered. (7) A-fib Current Visit: Yes Status: Suspected Assessment and plan: Suspected A. fib. Rhythm is irregular. She denies any chest pain or shortness of breath. Cardiology has seen patient, suspect PAS. Patient will continue aspirin and statin. She will follow up in the outpatient setting, if she is no longer falling they may start anticoagulation. They recommend rate control, however, rate appears to be controlled at this time. Average heart rate currently is 62. The pressure is well controlled. Qualifiers: Atrial fibrillation type: paroxysmal Qualified Code(s): I48.0 - Paroxysmal atrial fibrillation - Time Spent With Patient less than 15 minutes - Subjective Interval history: Pt was seen and assessed at 1330. Son at bedside. Pt is alert and awake, answers questions appropriately. She denies any pain. No n/v/d, dizziness, headache, chest pain or SOB. Patient and son discussed placement options, son agrees that patient would probably like to go to [facility]. - Constitutional Vitals: Temp Pulse Resp BP Pulse Ox 98.3 F 53 16 86/55 92 06/05/17 11:12 06/05/17 11:12 06/05/17 11:12 06/05/17 11:12 06/05/17 11:12 General appearance: Present: A&O X 2, pleasant, no acute distress, answers questions appropriately - Head Head exam: Present: atraumatic, normal inspection, normocephalic - Eye Eye exam: Present: normal appearance, conjuntiva pink, sclera anicteric - Neck Neck exam general surgery: Present: normal inspection, supple, trachea midline. Absent: lymphadenopathy, tenderness - Respiratory Respiratory exam: Present: CTAB. Absent: accessory muscle use, chest wall tenderness, rales, rhonchi, wheezes - Cardiovascular Cardiovascular exam: Present: RRR, +S1, +S2. Absent: diastolic murmur, gallop, rubs, systolic murmur - GI/Abdominal GI/Abdominal exam: Present: normal bowel sounds, soft, no peritoneal signs. Absent: hepatomegaly, tenderness - Extremities Exam Extremities exam: Present: normal capillary refill, normal inspection, warm, radial pulses palpable and symmetrical. Absent: calf tenderness, cyanotic, pedal edema, tenderness - Neurological Exam Neurological exam: Present: alert, oriented X3, no focal deficits. Absent: facial droop, speech deficit - Skin Skin exam: Present: dry, intact, normal color, warm. Absent: rash Internal Medicine: Result - Labs CBC & Chem 7: 06/04/17 00:51 06/04/17 00:51 - ABG Interpretation ABG results: PT/INR, D-dimer PT 11.3 Seconds (9.4-12.1) 06/03/17 13:37 - Impressions Impressions Echocardiogram Limited Views 06/05/17 15:06 Impressions: No evidence of PFO by agitated saline LVEF 55-60%. Left Ventricular Wall Motion: Rest Echo Findings All wall segments showed normal motion. Findings: Study Quality * Technically adequate exam. Right Ventricle * Normal right ventricular structure and function. Right Atrium * Normal right atrial size. Interatrial Septum * No evidence of PFO by agitated saline Aorta * Normally sized aortic root. Pericardium * The pericardium appears normal. Left Ventricle * LVEF 55-60%. * Indeterminate diastolic function. Left Atrium * Mildly dilated left atrium. IVC * Normal IVC dimensions and inspiratory collapse. ECG Findings * Sinus bradycardia. Aortic Valve * Aortic valve not well visualized. Mitral Valve * Normal mitral valve structure. * No mitral stenosis. Tricuspid Valve * Tricuspid valve not well visualized. Pulmonic Valve * Pulmonic valve not well visualized. - VTE Documentation of Mechanical Device: Intermittent pneumatic compression device Consult Discharge Plan - Plan Referrals: Silvia Carrion MD [Primary Care Provider] - Harpal Reece MD [Family Provider] -
[2017-06-06] MEDS: Insulin LISPRO 300 UNITS/3 ML VIAL SQ SCH ×4 (00:18→18:56)
[2017-06-06 04:15] LABS: Basophils # 0.1 K/mcL (0.0-0.2); Basophils % 0.8 %; Eosinophils # 0.2 K/mcL (0.0-0.6); Eosinophils % 3.3 %; Hemoglobin 13.1 g/dL (11.5-15.4); Immature Granulocytes % 0.3 % (0-4); Lymphocytes # 2.6 K/mcL (0.6-4.6); Lymphocytes % 35.4 %; Mean Corpuscular Hemoglobin 29.4 pg (28.0-33.3); Mean Corpuscular Volume 91.9 fL (83.0-100.0); Monocytes # 0.7 K/mcL (0.0-1.3); Monocytes % 8.9 %; Neutrophils # 3.8 K/mcL (1.6-8.9); Platelet Count 246 K/mcL (140-400); Red Blood Count 4.46 M/mcL (3.82-4.97); Red Cell Distribution Width 13.6 % (11.5-14.5); Segmented Neutrophils % 51.3 %
[2017-06-06 04:34] LABS: Calcium 8.9 mg/dL (8.6-10.3); Potassium 4.3 mEq/L (3.5-5.1)
[2017-06-06] MEDS: cefTRIAXone 1,000 MG in Water for inj. (sterile) 10 ML IVP SCH (09:01)
[2017-06-06] MEDS: Aspirin 325 MG TABLET PO SCH (09:01)
[2017-06-06] MEDS: tiZANidine 4 MG TABLET PO SCH ×2 (09:01→20:40)
--- NOTE | 2017-06-06 11:53 | Cardiology Progress Note ---
Date of Encounter: 06/06/17 Time of Encounter: 10:00 Assessment and Plan (1) CVA (cerebral vascular accident) Current Visit: Yes Status: Acute Per Cardiology: Head CT is negative, brain MRI showed a tiny acute lacunar infarct within left occipital lobe, chronic small vessel ischemic white matter disease and volume loss. Neurology saw. On asa and statin. Patient is DNR/CCA/DNI. Qualifiers: CVA mechanism: occlusion Precerebral and cerebral artery: unspecified cerebral artery Qualified Code(s): I63.50 - Cerebral infarction due to unspecified occlusion or stenosis of unspecified cerebral artery (2) A-fib Current Visit: Yes Status: Suspected Per Cardiology: Had been on "warfarin in the past for diabetes". She reports discontinued by PCP for unknown reasons. No previous medical records available for review. Telemetry reviewed with average heart rate 70, sinus rhythm, continues to have brief episodes of paroxysmal atrial fibrillation. Echo showed EF preserved 55-60 %, NSWMA. Heart rate in the 50s to 60s, will add low-dose beta aftab. Regarding long-term anticoagulation, [id number] = 7. Neurology saw patient and has on asa. Discussed with Neuro and recs for AC if able. I spoke with patient and son, she provided clarification that the medication was Metformin and not Warfarin in the past. No known hx of afib. Still has PAF on tele. Has had 4 falls in past 3 months, all appear mechanical other than this recent event in setting of acute CVA and UTI. Patient and son prefer to proceed with AC-- discussed with Dr. 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 H&H stable. Guaiac stools. Will s/o, re-consult PRN, f/ u scheduled. All questions answered. Qualifiers: Atrial fibrillation type: paroxysmal Qualified Code(s): I48.0 - Paroxysmal atrial fibrillation (3) UTI (urinary tract infection) Current Visit: Yes Status: Acute Per Cardiology: MS changes in setting of UTI. MS appears improved currently. Management per primary service. Qualifiers: Urinary tract infection type: acute cystitis Hematuria presence: with hematuria Qualified Code(s): N30.01 - Acute cystitis with hematuria Discussion w patient/family: The assessment and plan as outlined above was discussed with the patient who expressed understanding and agreement. All questions were answered. Thank you for involving us in the care of your patient. Please call with any questions. Subjective Principal diagnosis: CVA, PAF Interval history: Patient denies any concerns or complaints overnight. Denies any chest pain, short of breath, palpitations. Denies any active bleeding or blood loss. Objective Vital Signs, Last 4 Hours Temp Pulse Resp BP Pulse Ox 06/06/17 11:01 97.9 F 64 16 111/54 94 General: Conversant, No Apparent Distress HEENT: Atraumatic, Normocephaly, Mucus Membranes Moist Neck: No JVD, Normal carotid pulses Cardiac: Reg Rate and Rhythm, Normal S1 and S2, No Murmur Lungs: Normal Breath Sounds, No Wheeze, Rales, Rhonchi Neuro: Alert and responsive, No focal deficits noted, Other (Slight right sided Facial drooping and slurred speech) Abdomen: Soft, Non-Tender Skin: No rashes noted on visualized skin Musculoskeletal: No Chest Wall Tenderness Extremities: No Clubbing, No Cyanosis, No Edema, Normal Pulses Results 06/06/17 03:47 06/06/17 03:47 Lab Results 06/06/17 06/06/17 03:47 03:47 WBC 7.4 Hgb 13.1 Hct 41.0 Plt Count 246 Sodium 138 Potassium 4.3 Chloride 106 Carbon Dioxide 28 BUN 31 H Creatinine 1.24 H Glucose 115 H Calcium 8.9 - Imaging and Cardiology Echo: report reviewed - EKG Interpretation EKG results cardiology: other (Telemetry reviewed with average heart rate the past 12 hours 70, sinus rhythm with episodes of paroxysmal atrial fibrillation noted) - VTE Documentation of Mechanical Device: Intermittent pneumatic compression device Consult Discharge Plan - Plan Referrals: Silvia Carrion MD [Primary Care Provider] - Harpal Reece MD [Family Provider] -
--- NOTE | 2017-06-06 15:56 | Electrocardiograph Report ---
[address] [address] Test Date: 2017-06-03 Pat Name: Neela Armas Department: 103 Room: 3B Gender: F Physical Fitness Teacher: NATASHA : 1930 Requested By: Edil Zheng Order Number: [id number] Reading MD: Hung Cole MD Measurements Intervals [place] Rate: 63 P: 67 CT: 150 QRS: 25 QRSD: 113 T: 16 QT: 428 QTc: 435 Interpretive Statements SINUS RHYTHM INCOMPLETE RIGHT BUNDLE BRANCH BLOCK BASELINE ARTIFACT Electronically Signed On 06-06-2017 15:54:56 EST by Hung Cole MD
--- NOTE | 2017-06-06 16:28 | Internal Med Progress Note ---
Date of Encounter: 06/06/17 Time of Encounter: 16:26 - Assessment and plan (1) UTI (urinary tract infection) Current Visit: Yes Status: Acute Assessment and plan: E coli UTI, pansensitiy, continue ceftriaxone d/c magdaleno Qualifiers: Urinary tract infection type: acute cystitis Hematuria presence: with hematuria Qualified Code(s): N30.01 - Acute cystitis with hematuria (2) Altered mental status Current Visit: Yes Status: Acute Assessment and plan: artemioley metabolic encephalopathy, resolved Qualifiers: Altered mental status type: unspecified Qualified Code(s): R41.82 - Altered mental status, unspecified (3) CVA (cerebral vascular accident) Current Visit: Yes Status: Acute Assessment and plan: Patient presented to emergency department after being found morning of admission by her son incoherent at home. Son reports that mother has not eaten any food for 4 days and that the last time he saw her normal was 24 hours before she was found on admission. Patient was found on the floor, confused and weak with some speech difficulty. Intermittently slurred speech remains, patient is neurologically intact with strength equal bilaterally. Patient with slight right eyelid drooping, no facial droop. Son states this is normal for her. Head CT is negative, brain MRI showed a tiny acute lacunar infarct within left occipital lobe, chronic small vessel ischemic white matter disease and volume loss. Speech and swallow evaluation were completed. Patient has been placed on a normal diet. This was evaluated by neurology. They recommended completing the stroke workup including echo and carotids, which are completed. Continue aspirin 325 mg daily. Continue statin therapy. Limited echocardiogram shows no evidence of PFO and EF of 55-60%. Bilateral carotid system has nonstenotic plaque, left cerebral artery has retrograde flow. cardiology started on Xarelto PT/OT consultation, patient is going to SNF, likely tomorrow Head CT 06/03/17 13:07 IMPRESSION: 1. No acute intracranial abnormality. 2. Global atrophy with chronic periventricular white matter ischemic changes. D/ / 06/03/2017 14:29:36 Jered Pascual MD / [facility] Interpreting Provider: Jered Pascual MD Brain MRI 06/03/17 16:07 IMPRESSION: 1. Tiny area of acute lacunar infarct within left occipital lobe white matter. No associated susceptibility to suggest acute intracranial hemorrhage. 2. Chronic small vessel ischemic white matter disease and cerebral volume loss. 3. Multiple small subcentimeter T2 hyperintense lesions within bilateral parotid, which may represent intraparotid lymph nodes. This is not fully imaged on this examination. Qualifiers: CVA mechanism: occlusion Precerebral and cerebral artery: unspecified cerebral artery Qualified Code(s): I63.50 - Cerebral infarction due to unspecified occlusion or stenosis of unspecified cerebral artery (4) Diabetes mellitus Current Visit: Yes Status: Chronic Assessment and plan: Chronic. Accu-Cheks before meals at bedtime, diabetic diet, sliding scale insulin. Continue to monitor for hyperglycemia. Hypo-glycemia protocol ordered. Qualifiers: Diabetes mellitus type: type 2 Diabetes mellitus complication status: without complication Diabetes mellitus watermelon harvesting supervisor insulin use: without watermelon harvesting supervisor use Qualified Code(s): E11.9 - Type 2 diabetes mellitus without complications (5) HTN (hypertension) Current Visit: Yes Status: Chronic Assessment and plan: Chronic. Allow for permissive hypertension for 48 hours. After that, continue home medications. Qualifiers: Hypertension type: essential hypertension Qualified Code(s): I10 - Essential (primary) hypertension (6) DVT prophylaxis Current Visit: Yes Status: Acute Assessment and plan: SCDs ordered. (7) A-fib Current Visit: Yes Status: Suspected Qualifiers: Atrial fibrillation type: paroxysmal Qualified Code(s): I48.0 - Paroxysmal atrial fibrillation - Subjective Interval history: patient is doing ok, she has magdaleno due to incontinence, lshe agrees to have magdaleno out. Her sosn is at bedside, await for SNF. she has been doing well, Speech improved, tolerated diet. - Constitutional Vitals: Temp Pulse Resp BP Pulse Ox 97.9 F 64 16 111/54 94 06/06/17 11:01 06/06/17 11:01 06/06/17 11:01 06/06/17 11:01 06/06/17 11:01 General appearance: Present: A&O X 2, pleasant, no acute distress, answers questions appropriately - Head Head exam: Present: atraumatic, normocephalic - Eye Eye exam: Present: PERRL, conjuntiva pink, sclera anicteric - ENT ENT exam: Present: normal exam, normal external ear exam - Neck Neck exam general surgery: Present: normal inspection - Respiratory Respiratory exam: Present: CTAB. Absent: accessory muscle use, rales, rhonchi, wheezes - Cardiovascular Cardiovascular exam: Present: RRR, +S1, +S2. Absent: diastolic murmur, gallop, rubs, systolic murmur - GI/Abdominal GI/Abdominal exam: Present: normal bowel sounds, soft, no peritoneal signs. Absent: distended, tenderness - Extremities Exam Extremities exam: Present: warm, radial pulses palpable and symmetrical. Absent : calf tenderness, cyanotic, pedal edema - Neurological Exam Neurological exam: Present: CN II-XII intact, oriented X3, no focal deficits. Absent: pronater drift, facial droop, speech deficit - Psychiatric Psychiatric exam: Present: normal affect, normal mood - Skin Skin exam: Present: dry, intact Internal Medicine: Result - Labs CBC & Chem 7: 06/06/17 03:47 06/06/17 03:47 Labs: Short CBC 06/06/17 Range/Units 03:47 WBC 7.4 (4.3-11.1) K/mcL Hgb 13.1 (11.5-15.4) g/dL Hct 41.0 (35.3-44.9) % Plt Count 246 (140-400) K/mcL Neutrophils # 3.8 (1.6-8.9) K/mcL BMP 06/06/17 03:47 Sodium 138 Potassium 4.3 Chloride 106 Carbon Dioxide 28 BUN 31 H Creatinine 1.24 H Glucose 115 H Calcium 8.9 - ABG Interpretation ABG results: PT/INR, D-dimer PT 11.3 Seconds (9.4-12.1) 06/03/17 13:37 - VTE Documentation of Mechanical Device: Intermittent pneumatic compression device Consult Discharge Plan - Plan Referrals: Silvia Carrion MD [Primary Care Provider] - Harpal Reece MD [Family Provider] -
--- NOTE | 2017-06-06 16:40 | Electrocardiograph Report ---
[address] [place], [place] [address] Test Date: 2017-06-04 Pat Name: Neela Armas Department: 113 Room: 3B Gender: F Adviser Sales: : 1930 Requested By: Tavo Phelan Order Number: [id number] Reading MD: Hung Cole MD Measurements Intervals [place] Rate: 77 P: 46 CA: 143 QRS: 29 QRSD: 116 T: 36 QT: 362 QTc: 394 Interpretive Statements SINUS RHYTHM WITH BRIEF RUNS OF ATRIAL TACHYCARDIA INCOMPLETE RIGHT BUNDLE BRANCH BLOCK Electronically Signed On 06-06-2017 16:38:12 EST by Hung Cole MD
[2017-06-06] MEDS ORDERED: *HR* Rivaroxaban 10 MG TABLET PO SCH (17:00)
[2017-06-07] MEDS: Insulin LISPRO 300 UNITS/3 ML VIAL SQ SCH ×2 (04:00→05:51)
[2017-06-07 04:14] LABS: Basophils # 0.1 K/mcL (0.0-0.2); Basophils % 0.7 %; Eosinophils # 0.3 K/mcL (0.0-0.6); Eosinophils % 3.3 %; Hematocrit 40.9 % (35.3-44.9); Hemoglobin 13.2 g/dL (11.5-15.4); Immature Granulocytes % 0.3 % (0-4); Lymphocytes # 1.9 K/mcL (0.6-4.6); Lymphocytes % 19.1 %; Mean Corpuscular HGB Conc 32.3 g/dL (31.6-35.5); Mean Corpuscular Hemoglobin 29.6 pg (28.0-33.3); Mean Corpuscular Volume 91.7 fL (83.0-100.0); Mean Platelet Volume 11.1 fL (9.4-12.4); Monocytes # 0.9 K/mcL (0.0-1.3); Monocytes % 8.8 %; Neutrophils # 6.7 K/mcL (1.6-8.9); Platelet Count 256 K/mcL (140-400); Red Blood Count 4.46 M/mcL (3.82-4.97); Red Cell Distribution Width 13.6 % (11.5-14.5); Segmented Neutrophils % 67.8 %
[2017-06-07 04:29] LABS: Calcium 9.2 mg/dL (8.6-10.3); Potassium 4.1 mEq/L (3.5-5.1)
[2017-06-07 07:16] VITALS: BP 156/79
[2017-06-07] MEDS: tiZANidine 4 MG TABLET PO SCH (09:11)
[2017-06-07] MEDS: cefTRIAXone 1,000 MG in Water for inj. (sterile) 10 ML IVP SCH (09:12)
--- NOTE | 2017-06-07 09:29 | Discharge Summary ---
<Ky Herman - Last Filed: 06/07/17 18:06> Date of Encounter: 06/07/17 Time of Encounter: 08:15 - Discharge Diagnosis (1) Acute encephalopathy Priority: Primary Status: Acute (2) UTI (urinary tract infection) Priority: Secondary Status: Acute Qualifiers: Urinary tract infection type: acute cystitis Hematuria presence: with hematuria Qualified Code(s): N30.01 - Acute cystitis with hematuria (3) CVA (cerebral vascular accident) Priority: Secondary Status: Acute Qualifiers: CVA mechanism: occlusion Precerebral and cerebral artery: unspecified cerebral artery Qualified Code(s): I63.50 - Cerebral infarction due to unspecified occlusion or stenosis of unspecified cerebral artery (4) A-fib Priority: Secondary Status: Suspected Qualifiers: Atrial fibrillation type: paroxysmal Qualified Code(s): I48.0 - Paroxysmal atrial fibrillation - Discharge Medications Prescriptions: Cefuroxime PO [Ceftin] 250 mg PO Q12HR #10 tablet Atorvastatin [Lipitor] 10 mg PO HS #30 tablet Metoprolol [Lopressor] 12.5 mg PO BID #30 tablet Rivaroxaban [Xarelto] 15 mg PO 1700 #30 tablet Home Medications: Aspirin Enteric Coated [Aspirin EC] 81 mg PO DAILY 06/03/17 [History] Lovastatin [Lovastatin] 40 mg PO DAILY 06/03/17 [History] Tizanidine HCl [Tizanidine HCl] 2 mg PO BID 06/03/17 [History] Atorvastatin [Lipitor] 10 mg PO HS #30 tablet 06/07/17 [Rx] Cefuroxime PO [Ceftin] 250 mg PO Q12HR #10 tablet 06/07/17 [Rx] Metoprolol [Lopressor] 12.5 mg PO BID #30 tablet 06/07/17 [Rx] Rivaroxaban [Xarelto] 15 mg PO 1700 #30 tablet 06/07/17 [Rx] Allergies/Adverse Reactions: 3 Allergy/AdvReac Type Severity Reaction Status Date / Time No Known Allergies Allergy Verified 06/03/17 13:06 Procedures/tests Complete & Pending: Procedures Performed prior 72 hours Category Date Time Status EV carotid duplex imaging BI Routine Y 06/05/17 15:06 Completed EV limited echocardiogram Routine Y 06/05/17 15:06 Completed Date of admission: 06/03/17 19:33 Primary care physician: Silvia Carrion MD Consults: 06/04/17 10:26 Consult to Neurology [CONS] Routine Consulting Provider: [facility] Reason for Consult: CVA Time Notified: 10:26 Call Completed: Yes 06/04/17 12:02 Consult to Cardiology [CONS] Routine Comment: Consulting Provider: [facility] Reason for Consult: abnormal EKG and cardiac rhythm Time Notified: 07:25 Call Completed: Yes Discharging clinician: Ky Herman Anticipated date of discharge: 06/07/17 - Patient Status Disposition: Transfer SNF Condition: Fair Functional capacity at discharge: uses cane/walker Overall status at discharge: patient is progressing back to baseline - Discharge Instructions Instructions: Urinary Tract Infection in Women (DC) Follow Up With: Harpal Reece MD [Family Provider] - Silvia Carrion MD [Primary Care Provider] - (Within a week) Additional Instructions: Please take prescribed Ceftin 250 mg by mouth twice a day for 5 more days to finish the antibiotic treatment for UTI. Please take prescribed Xarelto 15 mg by mouth daily and Lopressor 12.5 mg by mouth twice a day for atrial fibrillation. Please switch your home lovastatin to prescribed atorvastatin 10 mg by mouth daily. Please follow up your primary care physician within a week regarding your hospitalization for stroke, A-fib and UTI. - Diet and Activity Activity: as per physical therapy Diet: low fat, low cholesterol, low salt diet Hospital course: Ms. Armas is a 86 year old female with PMH of HTN and DM who was sent by family to [facility] ED for altered mental status. In ED, patient was noted to have leukocytosis along with UA positive of leukocyte esterase suggestive of possible UTI. CT head in ED found no acute intracranial abnormality. Patient was admitted on 06/03/17 for acute encephalopathy work-up and UTI which patient was started on IV ceftriaxone. Urine culture grew dumont-sensitive E. coli. MRI brain found tiny area of acute lacunar infarct within left occipital lobe white matter. Bilateral carotid duplex found nonstenotic plaque in bilateral carotid systems. Echo found LVEF 55-60% but no evidence of PFO by agitated saline. Neurology was consulted and recommended aspirin and statin. Cardiology was also consulted for newly found A-fib and started patient on metoprolol for rate control and Xarelto for anticoagulation ([id number] score = 7). On 06/07/17, patient's mental status significantly improves and patient's A-fib remains rate- controlled at rate of 60s. PT/OT recommended SNF/ECF. Given patient improves clinically and remains hemodynamically stable, patient can be discharged to SNF with prescribed Ceftin 250 mg by mouth twice a day for 5 more days to finish the antibiotic treatment for UTI. Patient was also instructed to take prescribed Xarelto 15 mg by mouth daily and Lopressor 12.5 mg by mouth twice a day for atrial fibrillation. Patient will have her home lovastatin switched prescribed atorvastatin. Patient will need follow-up with her primary care physician within a week regarding the hospitalization for stroke, A-fib and UTI. Patient expressed her understanding and agreement with the discharge plan. All questions were answered. - Time Spent with Patient Total time spent providing and/or coordinating discharge services: - Constitutional Vitals: Temp Pulse Resp BP Pulse Ox 97.5 F L 67 16 156/79 98 06/07/17 07:15 06/07/17 07:15 06/07/17 07:15 06/07/17 07:15 06/07/17 07:15 General appearance: Present: A&O X 2, pleasant, no acute distress, answers questions appropriately - Head Head exam: Present: normal inspection - Eye Eye exam: Present: EOMI, conjuntiva pink, sclera anicteric - Neck Neck exam general surgery: Present: normal inspection, supple, trachea midline - Respiratory Respiratory exam: Present: CTAB. Absent: accessory muscle use, rales, rhonchi, wheezes - Cardiovascular Cardiovascular exam: Present: RRR, +S1, +S2 - GI/Abdominal GI/Abdominal exam: Present: normal bowel sounds, soft, no peritoneal signs. Absent: tenderness - Extremities Exam Extremities exam: Present: pedal edema, warm. Absent: cyanotic - Neurological Exam Neurological exam: Present: alert, no focal deficits. Absent: facial droop, speech deficit - Skin Skin exam: Present: dry, warm - VTE Documentation of Mechanical Device: Intermittent pneumatic compression device <Dashawn Pendleton - Last Filed: 06/08/17 17:40> Date of Encounter: 06/07/17 Procedures/tests Complete & Pending: Procedures Performed prior 72 hours Category Date Time Status EV carotid duplex imaging BI Routine Y 06/05/17 15:06 Completed EV limited echocardiogram Routine Y 06/05/17 15:06 Completed Date of admission: 06/03/17 19:33 Primary care physician: Silvia Carrion MD Consults: 06/04/17 10:26 Consult to Neurology [CONS] Routine Consulting Provider: [facility] Reason for Consult: CVA Time Notified: 10:26 Call Completed: Yes 06/04/17 12:02 Consult to Cardiology [CONS] Routine Comment: Consulting Provider: [facility] Reason for Consult: abnormal EKG and cardiac rhythm Time Notified: 07:25 Call Completed: Yes Hospital course: Ms. Armas is a 86 year old female - Time Spent with Patient Total time spent providing and/or coordinating discharge services: - Constitutional Vitals: Temp Pulse Resp BP Pulse Ox 97.5 F L 67 16 156/79 98 06/07/17 07:15 06/07/17 07:15 06/07/17 07:15 06/07/17 07:15 06/07/17 07:15 - Attending Attestation I conducted a face to face diagnostic evaluation of this patient and my medical decision-making was reviewed with the Resident Physician, Dr Ky Herman. I agree with the documented findings, disposition and treatment plan as described except to the extent set forth below: Patient was admitted and received treatment for acute lacunar left subpleural lung CVA, now diagnosed A. fib and UTI. Patient is now medically stable for discharge. She will be discharged to subacute rehabilitation. She will be prescribed Xarelto for atrial fibrillation and Ceftin for completion of antibiotic course for UTI. I instructed the patient to discuss with her physician or nurse if she noticed blood in the stool, black stool, dark urine or any other unusual bleeding. Dashawn Pendleton MD
--- NOTE | 2017-06-07 11:21 | Physician Discharge Referral ---
ExtendedCare Referral Info Transfer To: [facility] Provider in Charge after Transfer: PCP Institutional Level of Care: Skilled - Diagnosis (1) Acute encephalopathy Priority: Primary Status: Acute (2) UTI (urinary tract infection) Priority: Secondary Status: Acute (3) CVA (cerebral vascular accident) Priority: Secondary Status: Acute (4) A-fib Priority: Secondary Status: Suspected Prognosis: Fair - Transfer Medications Prescriptions: Cefuroxime PO [Ceftin] 250 mg PO Q12HR #10 tablet Atorvastatin [Lipitor] 10 mg PO HS #30 tablet Metoprolol [Lopressor] 12.5 mg PO BID #30 tablet Rivaroxaban [Xarelto] 15 mg PO 1700 #30 tablet Home Medications: Aspirin Enteric Coated [Aspirin EC] 81 mg PO DAILY 06/03/17 [History] Lovastatin [Lovastatin] 40 mg PO DAILY 06/03/17 [History] Tizanidine HCl [Tizanidine HCl] 2 mg PO BID 06/03/17 [History] Atorvastatin [Lipitor] 10 mg PO HS #30 tablet 06/07/17 [Rx] Cefuroxime PO [Ceftin] 250 mg PO Q12HR #10 tablet 06/07/17 [Rx] Metoprolol [Lopressor] 12.5 mg PO BID #30 tablet 06/07/17 [Rx] Rivaroxaban [Xarelto] 15 mg PO 1700 #30 tablet 06/07/17 [Rx] Allergies/Adverse Reactions: 3 Allergy/AdvReac Type Severity Reaction Status Date / Time No Known Allergies Allergy Verified 06/03/17 13:06 - Respiratory Orders Smoking Cessation: Smoking cessation has been advised. For more information, call the [place] Tobacco Quit Line at 9-450-QSNKNOW. - Advance Directives Code Status: DNR-Arrest/Don't Intubate - Mobility Orders Ambulate - Rehabiliation Orders Rehab Potential: Fair Rehab Orders: Evaluation for Physical Therapy, Evaluation for Occupational Therapy - Diet Orders Regular CERTIFICATION: I certify that the transfer of the above named patient to an Extended Care Facility is necessary for the continuing treatment of the diagnosis listed. The above information is true and accurate reflection of patient's current condition. Confidential - Redisclosure prohibited without a patient's written consent.
== END 2017-06-07 13:49 | DRG 64 ==
LOC: EMEROO 12:59 → 3BNU 12:59 → SUATTDRO 19:33
PROVIDERS: ADMIT Nurse Practitioner Acute Care; ATTEND Internal Medicine